=== PATIENT | male | born 1960 | race Caucasian/White ===

== ENCOUNTER 2018-04-20 17:01 | Observation (INO) ==
[2018-04-20] MEDS ORDERED: SALINE FLUSH 10ml SYRINGE IVF PRN (17:42)
--- NOTE | 2018-04-20 17:46 | Emergency Department Report ---
Cardiac General HPI - General Chief Complaint: Medical Emergency <December,Trung 04/21/18 06:04> Stated Complaint: defibrillator went off <December,Trung 04/21/18 06:04> Source: patient <Jazmyn Collins 04/20/18 18:02> Mode of arrival: ambulatory <Jazmyn Collins 04/20/18 18:02> Limitations: no limitations <Jazmyn Collins 04/20/18 18:02> - History of Present Illness HPI narrative: PT had been working outside and was walking back to his truck when his defibrillator went off. Pt called the analytical consultant office and was instructed to transmit a reading which he did and they thought to be V tach and pt was instructed to come to the ER. PT denies any chest pain, diaphoresis, dizziness, or any other symptoms prior to discharge of AICD. <Jazmyn Collins 04/20/18 18:02> Occurred At: home <Jazmyn Collins 04/20/18 18:02> Duration: now resolved <Jazmyn Collins 04/20/18 18:02> Context: AICD discharge <Jazmyn Collins 04/20/18 18:02> - Related Data Home Medications Medication Instructions Recorded Confirmed Amiodarone HCl 200 mg PO HS 04/20/18 04/20/18 Aspirin [Adult Aspirin] 81 mg PO HS 04/20/18 04/20/18 Ibuprofen [Advil] 200 mg PO Q4H PRN 04/20/18 04/20/18 Phenobarbital [Luminal] 129.6 mg PO HS 04/20/18 04/20/18 <December,Trung 04/21/18 06:04> Allergies Allergy/AdvReac Type Severity Reaction Status Date / Time No Known Drug Allergies Allergy Unknown Verified 04/20/18 17:20 <December,Trung 04/21/18 06:04> Review of Systems All systems: reviewed and negative except as stated <Jazmyn Collins 18:02> Limitations: ROS unobtainable due to patient's medical condition <Cielodeisy Jazmyn Delmy Molina 04/20/18 18:02> Cardiovascular: Reports: as per HPI <Jazmyn Collins 04/20/18 18:02> Respiratory: Reports: as per HPI <Jazmyn Collins 04/20/18 18:02> Gastrointestinal: Reports: as per HPI <Jazmyn Collins 04/20/18 18:02> Musculoskeletal: Reports: as per HPI <Jazmyn Collins 04/20/18 18:02> Integumentary: Reports: as per HPI <Jazmyn Collins 04/20/18 18:02> Neurological: Reports: as per HPI <Jazmyn Collins 04/20/18 18:02> [facility] Patient Stated Medical History Cardiac Arrhythmia Yes: AFIB Pneumonia Yes Ulcer Yes Osteoarthritis Yes Shingles Yes: 2015 <DecemberTrung 04/21/18 06:04> Surgical History: [employer] AICD. Myomectomy 2009. Lt elbow repair. Rt shoulder rotator cuff <Jazmyn Collins 04/20/18 18:02> - Social History Smoking status: Never smoker <Jazmyn saba 04/20/18 18:02> Physical Exam - Limitations Limitations: no limitations <Jazmyn saba 04/20/18 18:02> - General General appearance: alert, in no apparent distress <Jazmyn Collins 04/20 18:02> - Normal Exams: Head:: Normocephalic without trauma <Jazmyn saba 04/20/18 18:02> Eyes:: Pupils are PERRLA w/ EOMI <Jazmyn Collins 04/20/18 18:02> Neck:: Full range of motion <Jazmyn saba 04/20/18 18:02> Chest/Respirations:: Clear all zheng, with good airflow <Jazmyn Collins 04/20/18 18:02> Cardiovascular:: Regular rate and rhythm, without murmur or gallop, Pulses 2+ all extremities, capillary refill, <2 seconds all extremities <Jazmyn saba 04/20/18 18:02> Abdomen:: Bowel sounds positive, soft, non-tender, non-distended <Jazmyn Collins 04/20/18 18:02> Musculoskeletal:: No tenderness, or deformity noted, good range of motion, all extremities <Jazmyn Collins 04/20/18 18:02> Integumentary:: No rashes <Jazmyn Collins 04/20/18 18:02> Neurological:: Patient is alert, and oriented, cranial nerves, motor/sensory/ cerebellar, exams w/o gross deficits, to observation <Jazmyn Collins 18:02> Psychiatric:: Patient exhibits, appropriate attention, emotion and affect < Jazmyn Collins 04/20/18 18:02> Course Vital Signs Temperature 98.8 F 04/20/18 17:06 Pulse Rate 63 04/20/18 17:06 Respiratory Rate 11 04/20/18 17:06 Blood Pressure 124/73 04/20/18 17:06 Pulse Oximetry 98 04/20/18 17:06 Temperature 97.5 F 04/20/18 22:52 Pulse Rate 60 04/21/18 05:54 Respiratory Rate 14 04/20/18 22:52 Blood Pressure 106/67 04/20/18 22:52 Pulse Oximetry 98 04/21/18 05:54 <DecemberTrung [facility] 04/21/18 06:04> Cardiac General - MDM Narrative Medical decision making narrative: Labs and X ray reviewed. Interrogation of AICD reveals a brief episode of VT. Dr Parker notified and will admit observation. Plan discussed with pt who voces understanding. <Jazmyn Collins 04/20/18 19:35> - Differential Diagnosis Differential diagnosis: Likely: palpitations, anxiety, artial fibrillation, supraventricular tachycardia, ventricular tachycardia <Jazmyn Collins 18:02> - Lab Data Attestation: I reviewed the patient's lab results. <Jazmyn Collins 04/20 19:35> Result diagrams: 04/21/18 04:16 04/21/18 04:16 <DecemberTrung [facility] 04/21/18 06:04> Lab Results 04/20/18 04/20/18 Range/Units 18:05 18:05 WBC 6.5 (4.5-11.0) T/MM3 RBC 3.83 L (4.50-5.90) M/MM3 Hgb 12.6 L (13.5-17.5) GM/DL Hct 36.2 L (41-53) % MCV 94.5 (80-100) UM3 MCH 32.9 (26-34) UUG MCHC 34.8 (31-37) GM/DL RDW Std Deviation 44.8 (36.9-50.2) FL Plt Count 134 (130-400) T/MM3 MPV 11.3 (9.4-12.4) UM3 Immature Gran % (Auto) 0.2 (0.0-0.5) % Neut % (Auto) 79.9 H (33-66) % Lymph % (Auto) 13.2 L (23-45) % [place] % (Auto) 4.5 (0-9.0) % Eos % (Auto) 1.7 (0-4) % Baso % (Auto) 0.5 (0-2) % Neut # (Auto) 5.2 (1.8-7.7) T/MM3 Lymph # (Auto) 0.9 L (1-4.8) T/MM3 [place] # (Auto) 0.3 (0-0.8) T/MM3 Eos # (Auto) 0.1 (0-0.5) T/MM3 Baso # (Auto) 0.0 (0-0.2) T/MM3 Abs Immat Gran (auto) 0.01 (0.00-0.03) T/MM3 Turbidity < 20 (0-20) Sodium 144 (136-146) MEQ/L Potassium 3.9 (3.6-5) MEQ/L Chloride 112 H (98-107) MEQ/L Carbon Dioxide 24 (22-30) MEQ/L Anion Gap 8 (5-15) meq/L BUN 22.0 H (9-20) MG/DL Creatinine 0.8 (0.8-1.5) mg/dL Estimated Creat Clear 105 (>50) mL/min GFR Calculation 99 (>60) mL/min BUN/Creatinine Ratio 28 H (6-26) RATIO Glucose 108 (75-110) MG/DL Calculated Osmolality 281 H (261-280) MOSM/KG Calcium 8.2 L (8.4-10.2) MG/DL Total Bilirubin 0.30 (0.20-1.30) MG/DL Icterus Index < 2 (0-7) AST 32 (17-59) U/L ALT 35 (1-50) U/L Alkaline Phosphatase 92 (38-126) U/L Total Protein 6.4 (6.3-8.2) g/dL Albumin 4.0 (3.5-5.0) g/dL Globulin 2.4 (2.4-3.6) G/DL Albumin/Globulin Ratio 1.7 (1.1-2.2) RATIO Specimen Hemolysis < 15 (0-25) <eb 04/21/18 06:04> - Radiology Data Attestation: I reviewed the patient's radiology results. <Jazmyn Collins Delmy 04/20/18 19:35> - EKG Data EKG #1 EKG attestation: Yes: I reviewed and interpreted this EKG. <eb 06:04> EKG shows normal: sinus rhythm, axis, ST-T waves <eb 04/21/18 06:04 > [place]/QRS: LBBB <eb 04/21/18 06:04> Heart block present: 1st Degree <04/21/18 06:04> Disposition Clinical Impression: V tach <eb 04/21/18 06:04> Disposition: 02 To [facility] <04/21/18 06:04> Condition: Improved <04/21/18 06:04> Instructions: <eb 04/21/18 06:04> Prescriptions: No Action Aspirin [Adult Aspirin] 81 mg PO HS Phenobarbital [Luminal] 129.6 mg PO HS Amiodarone HCl 200 mg PO HS Ibuprofen [Advil] 200 mg PO Q4H PRN PRN Reason: Pain <December,Trung 04/21/18 06:04> Referrals: Primary Care,[facility] [Physician] - Sindhu Huerta, [employer] [Primary Care Provider] - <December,Trung 04/21/18 06: 04> Forms: <Trung Gonzalez 04/21/18 06:04> Time of Disposition: 19:34 <Jazmyn Collins 04/20/18 19:35> - Seen By: midlevel <Jazmyn Collins 04/20/18 19:35> Addendum entered and electronically signed by Jazmyn Collins APRN 19:43: Notified by [employer] that pt had a brief episode of VT at a a rate of 207 which the AICD tried to fast pace him which did not work and he was defibrillated at 36J with no further ectopy
[2018-04-20] MEDS ORDERED: NS 1,000 ML IV ONE (18:51)
[2018-04-20 20:30] VITALS: BMI 28.4
[2018-04-20] MEDS ORDERED: IBUPROFEN 200 MG TABLET PO PRN (20:57)
[2018-04-20] MEDS ORDERED: AMIODARONE 200 MG TABLET PO SCH (21:00)
[2018-04-20] MEDS ORDERED: ASPIRIN *EC* 81 MG TABLET PO SCH (21:00)
[2018-04-20] MEDS ORDERED: PHENOBARBITAL 64.8 MG TABLET PO SCH (21:00)
[2018-04-20] MEDS ORDERED: NAPROXEN 220 MG TABLET PO PRN (22:00)
[2018-04-20] MEDS ORDERED: DiphenhydrAMINE 25 MG CAPSULE PO PRN (22:02)
[2018-04-21 08:00] VITALS: BP 108/71; TEMP 99; O2SAT 97
--- NOTE | 2018-04-21 08:32 | XRay Report ---
INDICATION: AICD went off PROCEDURE: CHEST 2-VIEWS UPRIGHT (PA & LAT) Encounter: Initial COMPARISON: October 01, 2017 FINDINGS: The lungs are stable in appearance without focal pneumonia. There is no pleural effusion or pneumothorax. The heart size, mediastinal contours and pulmonary vascularity are stable with a left pacemaker defibrillator. There is no significant skeletal abnormality. IMPRESSION: No acute cardiopulmonary disease. .
[2018-04-21 08:41] VITALS: PULSE 63
[2018-04-21] MEDS ORDERED: Oxycodone/Acetaminophen 5/325 1 TAB PO PRN (10:17)
--- NOTE | 2018-04-21 11:12 | Cardiology History & Physical ---
History of Present Illness Chief complaint: AICD discharged HPI: Nico is a 58 year old male who is known to Dr. Parker's practice with a history of paroxysmal tachycardia, obstructive hypertrophic cardiomyopathy and [employer] AICD who had been working outside and was walking back to his truck when his defibrillator went off. He called the office and was instructed to transmit a reading which he did and they thought to be V tach and he was instructed to come to the ER. He denies any chest pain, diaphoresis, dizziness, or any other symptoms prior to discharge of AICD. Dr. Parker was consulted and examined him in the ED. Interrogation of his device revealed brief episode of VT at a a rate of 207 which the AICD tried to fast pace him which did not work and he was defibrillated at 36J with no further ectopy. He was admitted for observation for further evaluation. Review of Systems - Constitutional Constitutional: Absent: chills, fatigue, fever(s) - EENMT Eyes: Absent: change in vision Balance: Absent: vertigo Mouth/Throat: Absent: sore throat - Cardiovascular Cardiovascular: Present: dyspnea on exertion. Absent: chest pain, palpitations , syncope, orthopnea, heart murmur Rhythm: Present: abnormal rhythm Vascular: Absent: pedal edema - Respiratory Respiratory: Absent: cough, dyspnea, dyspnea on exertion - Gastrointestinal Gastrointestinal: Absent: abdominal pain, constipation, diarrhea, nausea, vomiting - Genitourinary Genitourinary: Absent: dysuria - Musculoskeletal Musculoskeletal: Present: other (right arm pain) - Integumentary/Breasts Integumentary: Absent: rash - Neurological Neurological: Absent: dizziness - Endocrine Endocrine: Absent: palpitations PFSH Patient Stated Medical History Cardiac Arrhythmia Yes: AFIB/Vtach Pneumonia Yes Ulcer Yes Other Hematologic Yes: had to have iron shots till age 5 Osteoarthritis Yes Shingles Yes: 2016 Surgical History: Medtronic AICD. Myomectomy 2010. Lt elbow repair. Rt shoulder rotator cuff Family History: Father - CHF - Social History Smoking status: Never smoker Substance use type: does not use Alcohol intake frequency: does not drink Housing: house Household members: spouse Current occupational status: employed Current occupation: long term system Current residence: Apartment/Private Home Medications Home Medications Medication Instructions Recorded Confirmed Type Amiodarone HCl 200 mg PO HS 04/20/18 04/20/18 History Aspirin [Adult Aspirin] 81 mg PO HS 04/20/18 04/20/18 History Ibuprofen [Advil] 200 mg PO Q4H PRN 04/20/18 04/20/18 History Phenobarbital [Luminal] 129.6 mg PO HS 04/20/18 04/20/18 History Allergies Allergy/AdvReac Type Severity Reaction Status Date / Time No Known Drug Allergies Allergy Unknown Verified 04/20/18 17:20 Exam Vital signs: Temperature 99 F 04/21/18 07:58 Pulse Rate 63 04/21/18 08:10 Respiratory Rate 20 04/21/18 10:42 Blood Pressure 108/71 04/21/18 07:58 Pulse Oximetry 97 04/21/18 07:58 - Constitutional no acute distress, well nourished, cooperative - Routine HEENT Exam Head: Present: normocephalic ENT: Present: mucous membranes moist - Routine Neck Exam Absent: JVD, carotid bruit - Routine Chest/Breast/Axilla Exam Chest wall: Present: pacemaker. Absent: tenderness - Routine Respiratory Exam Present: CTA bilaterally. Absent: dyspnea, rales, crackles - Routine Cardiovascular Exam Present: RRR, no murmur - Routine Abdominal Exam Present: soft, non tender - Routine Extremities Exam Present: no edema - Routine Skin Exam Present: intact, dry, warm - Routine Neurological Exam Present: alert, oriented X3 - Routine Psychiatric Exam Present: normal affect, normal thought process Results 04/21/18 04:16 04/21/18 04:16 Cardiac Enzymes 04/20/18 04/21/18 Range/Units 18:05 04:16 AST 32 (17-59) U/L Troponin I < 0.012 (0-0.12) ng/ml CBC 04/20/18 04/21/18 Range/Units 18:05 04:16 WBC 6.5 5.3 (4.5-11.0) T/MM3 RBC 3.83 L 3.70 L (4.50-5.90) M/MM3 Hgb 12.6 L 12.1 L (13.5-17.5) GM/DL Hct 36.2 L 35.2 L (41-53) % Plt Count 134 130 (130-400) T/MM3 Neut # (Auto) 5.2 3.5 (1.8-7.7) T/MM3 Lymph # (Auto) 0.9 L 1.2 (1-4.8) T/MM3 [place] # (Auto) 0.3 0.3 (0-0.8) T/MM3 Eos # (Auto) 0.1 0.2 (0-0.5) T/MM3 Baso # (Auto) 0.0 0.0 (0-0.2) T/MM3 Comprehensive Metabolic Panel 04/20/18 04/21/18 Range/Units 18:05 04:16 Sodium 144 144 (136-146) MEQ/L Potassium 3.9 4.2 (3.6-5) MEQ/L Chloride 112 H 113 H (98-107) MEQ/L Carbon Dioxide 24 24 (22-30) MEQ/L BUN 22.0 H 22.0 H (9-20) MG/DL Creatinine 0.8 0.9 (0.8-1.5) mg/dL Glucose 108 92 (75-110) MG/DL Calcium 8.2 L 8.2 L (8.4-10.2) MG/DL AST 32 (17-59) U/L ALT 35 (1-50) U/L Alkaline Phosphatase 92 (38-126) U/L Total Protein 6.4 (6.3-8.2) g/dL Albumin 4.0 (3.5-5.0) g/dL Intake and Output 04/20/18 04/21/18 04/21/18 22:59 06:59 14:59 Intake Total 1380 / 1380 200 / 200 360 / 360 Balance 1380 / 1380 200 / 200 360 / 360 Intake: IV 1000 / 1000 Ns 1,000 ml @ 999.9 mls/hr IV . 1000 / 1000 Q1H ONE Rx#:[id number] Oral 380 / 380 200 / 200 360 / 360 Other: Size of Bowel Movement Moderate # Voids 1 1 1 # Bowel Movements 1 Weight 186 lb 15.232 oz 188 lb 11.451 oz Patient Weight 04/22/18 06:59 Weight 188 lb 11.451 oz - Imaging and Cardiology Imaging & Cardiology Narrative: Date of Exam: 04/20/18 Ordering Provider: Jazmyn Collins APRN Type of Exam(s): XR chest 2V Reason for Exam(s): AICD went off INDICATION: AICD went off PROCEDURE: CHEST 2-VIEWS UPRIGHT (PA & LAT) Encounter: Initial COMPARISON: October 01, 2017 FINDINGS: The lungs are stable in appearance without focal pneumonia. There is no pleural effusion or pneumothorax. The heart size, mediastinal contours and pulmonary vascularity are stable with a left pacemaker defibrillator. There is no significant skeletal abnormality. IMPRESSION: No acute cardiopulmonary disease. . 04/21/18 11:19 EKG interpretations - EKG EKG shows: sinus rhythm - Blocks, axis, hypertrophy, ST abn AV and intraventricular conduction: 1 AV block, left bundle branch block (fixed/ intermittent, complete/incomplete) Hospital Course This is a general summary of the patient's hospital course. For more details refer to the complete medical record. Time spent with patient: 25 - 35 minutes Resuscitation Status: Full Code Assessment and Plan - Assessment and Plan (1) Ventricular tachycardia Current visit: Yes Status: Acute V tach, rate 207, AICD discharged and terminated run - Patient denies symptoms - EKG SR 1st degree AV block, LBBB - Start Metoprolol 25mg BID - Monitor telemetry - Outpatient echo and stress test in near future. (2) Obstructive hypertrophic cardiomyopathy Current visit: No Status: Chronic Add Metoprolol 25mg BID - Out patient stress test and echo for routine monitoring (3) Presence of automatic implantable cardioverter-defibrillator Problem details: [employer] Current visit: No Status: Chronic Continue [facility] home monitoring, check in office annually
[2018-04-21 13:50] VITALS: RESP 18
--- NOTE | 2018-04-21 14:06 | Discharge Summary ---
Discharge Information Date of admission: 04/20/18 19:30 Anticipated date of discharge: 04/21/18 Attending Physician: Harvinder Parkre MD Primary care physician: Sindhu Huerta APRN - Discharge Diagnosis (1) Ventricular tachycardia Status: Acute (2) Obstructive hypertrophic cardiomyopathy Status: Chronic (3) Presence of automatic implantable cardioverter-defibrillator Status: Chronic External Problems Reviewed (CCD)?: Yes V TACH - Laboratory Labs: 04/21/18 04:16 04/21/18 04:16 History of Present Illness HPI: Nico is a 58 year old male who is known to Dr. Parker's practice with a history of paroxysmal tachycardia, obstructive hypertrophic cardiomyopathy and [employer] AICD who had been working outside and was walking back to his truck when his defibrillator went off. He called the office and was instructed to transmit a reading which he did and they thought to be V tach and he was instructed to come to the ER. He denies any chest pain, diaphoresis, dizziness, or any other symptoms prior to discharge of AICD. Dr. Parker was consulted and examined him in the ED. Interrogation of his device revealed brief episode of VT at a a rate of 207 which the AICD tried to fast pace him which did not work and he was defibrillated at 36J with no further ectopy. He was admitted for observation for further evaluation. Hospital Course This is a general summary of the patient's hospital course. For more details refer to the complete medical record. Hospital course: Ventricular tachycardia Current visit: Yes Status: Acute - V tach, rate 207, AICD discharged and terminated run - Patient denies symptoms - EKG SR 1st degree AV block, LBBB - Start Metoprolol 25mg BID - Monitor telemetry - Outpatient echo and stress test in near future. Obstructive hypertrophic cardiomyopathy Current visit: No Status: Chronic - Add Metoprolol 25mg BID - Out patient stress test and echo for routine monitoring Presence of automatic implantable cardioverter-defibrillator Problem details: [employer] Current visit: No Status: Chronic - Continue [facility] home monitoring, check in office annually Exam Vital signs: Temperature 99 F 04/21/18 07:58 Pulse Rate 63 04/21/18 08:10 Respiratory Rate 18 04/21/18 13:50 Blood Pressure 108/71 04/21/18 07:58 Pulse Oximetry 97 04/21/18 07:58 - Constitutional no acute distress, well nourished, cooperative - Routine HEENT Exam Head: Present: normocephalic ENT: Present: mucous membranes moist - Routine Neck Exam Absent: JVD, carotid bruit - Routine Chest/Breast/Axilla Exam Chest wall: Absent: tenderness - Routine Respiratory Exam Present: CTA bilaterally. Absent: dyspnea, rales, wheezes - Routine Cardiovascular Exam Present: RRR, no murmur - Routine Abdominal Exam Present: soft, non tender - Routine Extremities Exam Present: no edema, pulses intact - Routine Skin Exam Present: intact, dry, warm - Routine Neurological Exam Present: alert, oriented X3 - Routine Psychiatric Exam Present: normal affect, normal thought process Results 04/21/18 04:16 04/21/18 04:16 Cardiac Enzymes 04/20/18 04/21/18 Range/Units 18:05 04:16 AST 32 (17-59) U/L Troponin I < 0.012 (0-0.12) ng/ml CBC 04/20/18 04/21/18 Range/Units 18:05 04:16 WBC 6.5 5.3 (4.5-11.0) T/MM3 RBC 3.83 L 3.70 L (4.50-5.90) M/MM3 Hgb 12.6 L 12.1 L (13.5-17.5) GM/DL Hct 36.2 L 35.2 L (41-53) % Plt Count 134 130 (130-400) T/MM3 Neut # (Auto) 5.2 3.5 (1.8-7.7) T/MM3 Lymph # (Auto) 0.9 L 1.2 (1-4.8) T/MM3 [place] # (Auto) 0.3 0.3 (0-0.8) T/MM3 Eos # (Auto) 0.1 0.2 (0-0.5) T/MM3 Baso # (Auto) 0.0 0.0 (0-0.2) T/MM3 Comprehensive Metabolic Panel 04/20/18 04/21/18 Range/Units 18:05 04:16 Sodium 144 144 (136-146) MEQ/L Potassium 3.9 4.2 (3.6-5) MEQ/L Chloride 112 H 113 H (98-107) MEQ/L Carbon Dioxide 24 24 (22-30) MEQ/L BUN 22.0 H 22.0 H (9-20) MG/DL Creatinine 0.8 0.9 (0.8-1.5) mg/dL Glucose 108 92 (75-110) MG/DL Calcium 8.2 L 8.2 L (8.4-10.2) MG/DL AST 32 (17-59) U/L ALT 35 (1-50) U/L Alkaline Phosphatase 92 (38-126) U/L Total Protein 6.4 (6.3-8.2) g/dL Albumin 4.0 (3.5-5.0) g/dL Intake and Output 04/20/18 04/21/18 04/21/18 22:59 06:59 14:59 Intake Total 1380 / 1380 200 / 200 360 / 360 Balance 1380 / 1380 200 / 200 360 / 360 Intake: IV 1000 / 1000 Ns 1,000 ml @ 999.9 mls/hr IV . 1000 / 1000 Q1H ONE Rx#:[id number] Oral 380 / 380 200 / 200 360 / 360 Other: Size of Bowel Movement Moderate # Voids 1 1 1 # Bowel Movements 1 Weight 186 lb 15.232 oz 188 lb 11.451 oz Patient Weight 04/22/18 06:59 Weight 188 lb 11.451 oz - Imaging and Cardiology Imaging & Cardiology Narrative: = = = = = = = = = = = = = = = = = = = = = = = = = = = = = = = = = = = = = = = = = = = = = = = = = = = = = = = = = = = Date of Exam: 04/20/18 Ordering Provider: Jazmyn Collins APRN Type of Exam(s): XR chest 2V Reason for Exam(s): AICD went off INDICATION: AICD went off PROCEDURE: CHEST 2-VIEWS UPRIGHT (PA & LAT) Encounter: Initial COMPARISON: October 01, 2017 FINDINGS: The lungs are stable in appearance without focal pneumonia. There is no pleural effusion or pneumothorax. The heart size, mediastinal contours and pulmonary vascularity are stable with a left pacemaker defibrillator. There is no significant skeletal abnormality. IMPRESSION: No acute cardiopulmonary disease. 04/21/18 14:03 Discharge Plan - Med Rec/Dispo Referrals/Follow Up: Harvinder Parker MD [Physician] - 05/05/18 2:20 pm Osbaldo Instructions: Supraventricular Tachycardia (DC), Implantable Cardioverter Defibrillator (DC) Prescriptions: New Metoprolol Tartrate [Lopressor] 25 mg PO BIDWM #60 tab Continue Aspirin [Adult Aspirin] 81 mg PO HS Phenobarbital [Luminal] 129.6 mg PO HS Amiodarone HCl 200 mg PO HS Ibuprofen [Advil] 200 mg PO Q4H PRN PRN Reason: Pain - Disposition 01 Discharged Home, Self-Care - Dismissal Complete Discharge Instructions are:: Complete
--- NOTE | 2018-04-21 16:09 | Work/School Release ---
Work/School Release - Date Date: 04/21/18 - Work Release Remain off work/school for:: recent illness Excused for:: recent illness May return to work on:: 04/22/18 Restrictions:: none May resume normal activity on:: 04/21/18
== END 2018-04-21 16:30 | disposition home or self-care (01) ==
LOC: ED 17:01 → EDHOLD 17:01 → MED 20:15
PROVIDERS: ADMIT Internal Medicine Cardiovascular Disease; ATTEND Internal Medicine Cardiovascular Disease